=== PATIENT | male | born 1935 | race Caucasian/White ===

== ENCOUNTER 2016-05-10 14:22 | Inpatient (IN) | payer MEDICARE ==
[2016-05-10 15:22] VITALS: BMI 24.6
[2016-05-10] MEDS ORDERED: SODIUM CHLORIDE 0.9% 10 ML FLUSH FLUSH PRN (16:59)
[2016-05-10] MEDS ORDERED: Pharmacy Review for Metformin - IV Contrast Given SCH (17:00)
[2016-05-10] MEDS ORDERED: NS 1,000 ML IV ONE (17:00)
[2016-05-10] MEDS ORDERED: ONDANSETRON HCL 4 MG/2 ML VIAL IV ONE (17:01)
[2016-05-10 17:13] LABS: MPV 8.8 fL (7.4-10.4)
[2016-05-10 17:24] LABS: PARTIAL THROMB. TIME 23.8 SEC (22-35)
[2016-05-10 17:25] LABS: BLOOD UREA NITROGEN 37 MG/DL (9-20); CALCIUM 9.5 MG/DL (8.4-10.2); CALCULATED OSMOLALITY 270 MOs/Kg (270-290); CHLORIDE 94 mEq/L (98-107); GLUCOSE 112 MG/DL (70-99); SODIUM LEVEL 135 mEq/L (137-146); TOTAL PROTEIN 8.3 G/DL (6.3-8.2)
--- NOTE | 2016-05-10 17:32 | EDPRACDOC ---
- General Information Information Source: Patient, Family Mode Of Arrival: Car - History of Present Illness Onset: THUR Pain Location: Reports: RLQ, LLQ Pain Context: Reports: Spontaneous Pain Severity: Severe Pain Quality: Reports: Cramping, Sharp, Stabbing Pain Radiation: Reports: Chest Modifying Factors: improves with: Nothing Associated Signs & Symptoms: Reports: Nausea, Vomiting, Chills <Germaine Tang - Last Filed: 05/10/16 17:30> <Kenzie Villafuerte - Last Filed: 05/10/16 19:26> - General Information Chief Complaint: Abdominal Pain Stated Complaint: VOMITING/ NAUSEA Time Seen by Provider: 05/10/16 16:37 Home Medications: Home Medications Aspirin 325 mg PO DAILY 01/20/13 Diltiazem HCl [Cartia Xt] 240 mg PO DAILY 01/20/13 Docosahexanoic Acid/Epa [Fish Oil Softgel] 1 each PO DAILY 01/20/13 Multivitamin [One-A-Day Essential] 1 each PO DAILY 01/20/13 Allergies/Adverse Reactions: Allergies Allergy/AdvReac Type Severity Reaction Status Date / Time No Known Allergies Allergy Verified 05/10/16 15:22 - History of Present Illness HPI: PT PRESENTS TODAY WITH BILATERAL LOWER ABD PAIN, N/V, CHILLS AND CP X 4 DAYS. PT STATES HE IS UNABLE TO KEEP ANYTHING DOWN. STATES THAT ABD PAIN IS WORSENED AND NOW IS MOVING INTO HIS CHEST, CAUSING CP, WHICH IS ALSO WORSE WITH VOMITING. HAS VOMITED 3 TIMES TODAY. PT HAS PACEMAKER FOR A FIB, AND NO OTHER MED/SURG HISTORY. NO APPARENT DISTRESS AT THIS TIME. (Germaine Tang) Other History: NAUSEA AND ANOREXIA FOR SEVERAL DAYS. VOMITING SO DAYS. SOME SMALL AMOUNT OF STOOL OUTPUT. WITHOUT DIARRHEA. (Kenzie Villafuerte) ED Past Medical History - History Reviewed Yes Nurses notes reviewed and agree except as marked - Patient Medical History Cardiac History: Reports: Atrial Fibrillation, Hypertension, Pacemaker (2010) Psychological History: Denies: Depression Systemic History: Denies: Cancer - Family Medical History Reports: Hypertension (siblings), Diabetes (siblings), Cardiac Disorders ( siblings). Denies: Cancer - Social Medical History Smoking Status: Never smoker <Germaine Tang - Last Filed: 05/10/16 17:30> - Patient Medical History Surgical History: Reports: No Significant History - Social Medical History ETOH: None Substance Abuse: None Lives With: Family Lives In: Home <Kenzie Villafuerte N - Last Filed: 05/10/16 19:26> EDM Review of Systems - Review of Systems ROS Negative Except as Marked: Yes All systems reviewed and were negative except as marked Constitutional: Chills, Fatigue, Loss of Appetite Eyes: No Symptoms Reported Ears: No Symptoms Reported Throat: No Symptoms Reported Nose: No Symptoms Reported Respiratory: No Symptoms Reported Cardiovascular: Chest Pain Gastrointestinal: Nausea, Pain, Vomiting Genitourinary: No Symptoms Reported Neurological: No Symptoms Reported Musculoskeletal: No Symptoms Reported Integumentary: No Symptoms Reported <KittyGermaine mcintyre - Last Filed: 05/10/16 17:30> - Physical Exam Constitutional: Alert (Awake), No apparent distress Oriented to: Time, Person, Place - HEENT Head: Normal Eye Exam: Normal Neck: Normal, Denies Pain, Midline - Respiratory/Cardiovascular Respiratory: Normal - CTA Cardiovascular: Normal - GI Auscultation: Normal Palpation: Normal Tenderness: Non tender (PT DENIES PAIN AT THIS TIME) - Musculoskeletal Back: Normal Extremities: Normal - Integumentary Skin: Normal Lymphatics: Normal - Neurologic Cerebellar: Normal Mood Description: Normal Thought: Coherent Perception: Normal <KittyGermaine Mcintyre - Last Filed: 05/10/16 17:30> - Results 05/10/16 16:51 05/10/16 16:51 <Germaine Tang - Last Filed: 05/10/16 17:30> - Results 05/10/16 16:51 05/10/16 16:51 - Diagnostic Imaging Abdomen Image interpreted by: Radiologist <VillafuerteLexie butlerdy N - Last Filed: 05/10/16 19:26> - Results WBC 20.3 xk/uL (3.8-10.8) H 05/10/16 16:51 RBC 5.18 xM/uL (4.70-6.10) 05/10/16 16:51 Hgb 15.1 g/dL (14.0-18.0) 05/10/16 16:51 Hct 45.5 % (42-52) 05/10/16 16:51 MCV 88 fL (80-94) 05/10/16 16:51 MCH 29.1 pg (27-32) 05/10/16 16:51 MCHC 33.2 g/dl (33-36) 05/10/16 16:51 RDW 12.9 % (11.5-14.5) 05/10/16 16:51 Plt Count 240 xk/uL (130-400) 05/10/16 16:51 MPV 8.8 fL (7.4-10.4) 05/10/16 16:51 Neut % (Auto) Cancelled 05/10/16 16:51 Lymph % (Auto) Cancelled 05/10/16 16:51 [place] % (Auto) Cancelled 05/10/16 16:51 Eos % (Auto) Cancelled 05/10/16 16:51 Baso % (Auto) Cancelled 05/10/16 16:51 Absolute Neuts (auto) Cancelled 05/10/16 16:51 Absolute Lymphs (auto) Cancelled 05/10/16 16:51 Seg Neuts % (Manual) 77 % (45-76) H 05/10/16 16:51 Lymphocytes % (Manual) 22 % (17-44) 05/10/16 16:51 Monocytes % (Manual) 1 % (0-10) 05/10/16 16:51 Absolute Lymphocytes 4.47 xk/uL (0.65-4.75) 05/10/16 16:51 Platelet Estimate Norm (NORMAL) 05/10/16 16:51 RBC Morphology Norm 05/10/16 16:51 PT 10.6 SEC (9.2-11.2) 05/10/16 16:51 INR 1.0 05/10/16 16:51 APTT 23.8 SEC (22-35) 05/10/16 16:51 Sodium 135 mEq/L (137-146) L 05/10/16 16:51 Potassium 4.2 mEq/L (3.5-5.1) 05/10/16 16:51 Chloride 94 mEq/L (98-107) L 05/10/16 16:51 Carbon Dioxide 27 mMOL/L (22-33) 05/10/16 16:51 Anion Gap 18 mEq/L (8-16) H 05/10/16 16:51 BUN 37 MG/DL (9-20) H 05/10/16 16:51 Creatinine 1.00 MG/DL (0.66-1.25) 05/10/16 16:51 Estimated GFR (MDRD) > 60 mL/min (>=60) 05/10/16 16:51 Glucose 112 MG/DL (70-99) H 05/10/16 16:51 Calculated Osmolality 270 MOs/Kg (270-290) 05/10/16 16:51 Lactic Acid 1.5 mEq/L (0.7-2.1) 05/10/16 17:18 Calcium 9.5 MG/DL (8.4-10.2) 05/10/16 16:51 Total Bilirubin 1.0 MG/DL (0.2-1.3) 05/10/16 16:51 AST 58 IU/L (17-59) 05/10/16 16:51 ALT 33 IU/L (21-72) 05/10/16 16:51 Alkaline Phosphatase 96 IU/L (50-160) 05/10/16 16:51 Troponin I < 0.01 ng/mL (<.04) 05/10/16 16:51 Total Protein 8.3 G/DL (6.3-8.2) H 05/10/16 16:51 Albumin 4.4 G/DL (3.5-5.0) 05/10/16 16:51 Urine Color Germaine 05/10/16 16:42 Urine Clarity Sl cldy 05/10/16 16:42 Urine pH 6.0 (5.0-8.0) 05/10/16 16:42 Ur Specific [place] >/=1.035 (1.003-1.035) 05/10/16 16:42 Urine Protein 2+ (NEG/TRACE) H 05/10/16 16:42 Urine Glucose (UA) Neg (NEGATIVE) 05/10/16 16:42 Urine Ketones Neg (NEGATIVE) 05/10/16 16:42 Urine Occult Blood Neg (NEG/TRACE) 05/10/16 16:42 Urine Nitrite Neg (NEGATIVE) 05/10/16 16:42 Urine Bilirubin Neg (NEGATIVE) 05/10/16 16:42 Urine Urobilinogen <2.0 MG/DL (0-1) 05/10/16 16:42 Ur Leukocyte Esterase Neg (NEGATIVE) 05/10/16 16:42 Urine RBC 10-20 (0-2) H 05/10/16 16:42 Urine WBC 2-5 (0-2) H 05/10/16 16:42 Calcium Oxalate Crystal 1+ 05/10/16 16:42 Urine Mucus Large (NEG/OCC) 05/10/16 16:42 Lab Results 05/10/16 05/10/16 05/10/16 17:18 16:51 16:51 WBC 20.3 H RBC 5.18 Hgb 15.1 Hct 45.5 MCV 88 MCH 29.1 MCHC 33.2 RDW 12.9 Plt Count 240 MPV 8.8 Neut % (Auto) Cancelled Lymph % (Auto) Cancelled [place] % (Auto) Cancelled Eos % (Auto) Cancelled Baso % (Auto) Cancelled Absolute Neuts (auto) Cancelled Absolute Lymphs (auto) Cancelled Seg Neuts % (Manual) 77 H Lymphocytes % (Manual) 22 Monocytes % (Manual) 1 Absolute Lymphocytes 4.47 Platelet Estimate Norm RBC Morphology Norm PT 10.6 INR 1.0 APTT 23.8 Sodium Potassium Chloride Carbon Dioxide Anion Gap BUN Creatinine Estimated GFR (MDRD) Glucose Calculated Osmolality Lactic Acid 1.5 Calcium Total Bilirubin AST ALT Alkaline Phosphatase Troponin I Total Protein Albumin Urine Color Urine Clarity Urine pH Ur Specific [place] Urine Protein Urine Glucose (UA) Urine Ketones Urine Occult Blood Urine Nitrite Urine Bilirubin Urine Urobilinogen Ur Leukocyte Esterase Urine RBC Urine WBC Calcium Oxalate Crystal Urine Mucus 05/10/16 05/10/16 16:51 16:42 WBC RBC Hgb Hct MCV MCH MCHC RDW Plt Count MPV Neut % (Auto) Lymph % (Auto) [place] % (Auto) Eos % (Auto) Baso % (Auto) Absolute Neuts (auto) Absolute Lymphs (auto) Seg Neuts % (Manual) Lymphocytes % (Manual) Monocytes % (Manual) Absolute Lymphocytes Platelet Estimate RBC Morphology PT INR APTT Sodium 135 L Potassium 4.2 Chloride 94 L Carbon Dioxide 27 Anion Gap 18 H BUN 37 H Creatinine 1.00 Estimated GFR (MDRD) > 60 Glucose 112 H Calculated Osmolality 270 Lactic Acid Calcium 9.5 Total Bilirubin 1.0 AST 58 ALT 33 Alkaline Phosphatase 96 Troponin I < 0.01 Total Protein 8.3 H Albumin 4.4 Urine Color Germaine Urine Clarity Sl cldy Urine pH 6.0 Ur Specific [place] >/=1.035 Urine Protein 2+ H Urine Glucose (UA) Neg Urine Ketones Neg Urine Occult Blood Neg Urine Nitrite Neg Urine Bilirubin Neg Urine Urobilinogen <2.0 Ur Leukocyte Esterase Neg Urine RBC 10-20 H Urine WBC 2-5 H Calcium Oxalate Crystal 1+ Urine Mucus Large (Germaine Tang) (Kenzie Villafuerte) - Diagnostic Imaging Abdomen 05/10/16 19:13 Patient Name: CASE CERNA JR LOC: ED : 1935 AGE: 80 Order Date:05/10/16 Date of Service:12/17 Report # [id number] Ord Physician: Germaine Tang Exam # [id number] Emergency Physician: Kenzie Villafuerte MD Exam(s): [id number] CT/CT ABD-PELV W/IV CM CLINICAL DATA: Lower abdominal pain. Leukocytosis. EXAM: CT ABDOMEN AND PELVIS WITH CONTRAST TECHNIQUE: Multidetector CT imaging of the abdomen and pelvis was performed using the standard protocol following bolus administration of intravenous contrast. CONTRAST: 100 cc Isovue 370 intravenously. COMPARISON: None. FINDINGS: Lower chest: Partially visualized cardiac pacemaker leads are seen in the right atrium and right ventricle. There is coronary artery disease. There is a small hiatal hernia. Hepatobiliary: No masses or other significant abnormality. Pancreas: No mass, inflammatory changes, or other significant abnormality. Spleen: Within normal limits in size and appearance. Adrenals/Urinary Tract: No masses identified. No evidence of hydronephrosis. There is a 3 mm nonobstructing right lower pole renal calculus. There is a 7 mm, left lower pole probable renal cyst. Stomach/Bowel: The stomach is distended. Moderate in degree distention continues into the duodenum and proximal jejunum, with maximum transverse diameter of 3 cm. There is a transition to normal caliber small bowels in the mid abdomen at enterotomy line, likely from prior small bowel resection, axial images 60-64. The proximal most segment of decompressed bowel demonstrates a long segment of smooth wall thickening involving across approximately 13 cm of bowel. The colon is normal in caliber. Scattered colonic diverticula, particularly of the sigmoid colon are seen without evidence of diverticulitis. Vascular/Lymphatic: No pathologically enlarged lymph nodes. No evidence of abdominal aortic aneurysm. Tortuosity and atherosclerotic disease of the abdominal aorta are noted, with calcified and noncalcified plaque. Reproductive: The prostate gland is prominent measuring 4.5 x 3.9 cm. Other: None. Musculoskeletal: No suspicious bone lesions identified. S shape lumbosacral spine scoliosis with multilevel osteoarthritic changes are seen. IMPRESSION: Partial or incomplete proximal small bowel obstruction, with a transitional point at prior enterotomy line likely from prior small bowel resection, with long segment of smooth bowel wall thickening of approximately 13 cm immediately downstream to the transitional point. Scattered colonic diverticulosis, particularly affecting the sigmoid colon without evidence of diverticulitis. Tiny nonobstructing right renal calculus. 7 mm smoothly marginated too small to be characterized left renal mass, likely representing a cyst. Mild enlargement of the prostate gland. Atherosclerotic disease of the aorta. Small hiatal hernia. Electronically Signed By: Tammie Valentine M.D. On: 05/10/2016 18:26 Electronically Signed By: Tammie Mauricio MD Electronically Signed Date/Time: 829 Dictate Date/Time: 05/10/16 1808 Technologist: Bre Bolaños Transcribed By: Aristeo Transcribed Date/Time: 05/10/16 1826 (Kenzie Villafuerte) <Germaine Tang - Last Filed: 05/10/16 17:30> - Departure Disposition: Admit IP To This Hospital Education/Counseling Given To: Patient, Family Member Education/Counseling Given Regarding: Diagnosis, Treatment, Prognosis Decision to Admit Time: 19:26 Decision to admit date: 05/10/16 Decision to admit: from ED - Physician Consulted Hospitalist Time Called: 19:14 Provider Called: Rikki Saavedra Time Cardroom Supervisor Returned Call: 19:26 <Kenzie Villafuerte - Last Filed: 05/10/16 19:26> - Departure Final Diagnosis: Partial small bowel obstruction, Dehydration Referrals: Beni Dahl MD [Primary Care Provider] - As Needed
[2016-05-10 17:34] LABS: SEG NEUTROPHIL 77 % (45-76)
[2016-05-10 17:40] LABS: CA OXALATE 1+; LEUKOCYTES/URINE NEG (NEGATIVE); NITRITE/URINE NEG (NEGATIVE); URINE OCCULT BLOOD NEG (NEG/TRACE)
--- NOTE | 2016-05-10 17:47 | DIRPT ---
CLINICAL DATA: Chest pain. EXAM: PORTABLE CHEST 1 VIEW COMPARISON: Single view of the chest 07/17/2010. FINDINGS: Since the prior study, dual lead pacing device has been placed. Leads project over the right atrium and right ventricle. Heart size is upper normal. Lungs are clear. No pneumothorax or pleural effusion. IMPRESSION: No acute disease. Electronically Signed By: Julio Cesar Vance M.D. On: 05/10/2016 17:44
--- NOTE | 2016-05-10 18:29 | DIRPT ---
CLINICAL DATA: Lower abdominal pain. Leukocytosis. EXAM: CT ABDOMEN AND PELVIS WITH CONTRAST TECHNIQUE: Multidetector CT imaging of the abdomen and pelvis was performed using the standard protocol following bolus administration of intravenous contrast. CONTRAST: 100 cc Isovue 370 intravenously. COMPARISON: None. FINDINGS: Lower chest: Partially visualized cardiac pacemaker leads are seen in the right atrium and right ventricle. There is coronary artery disease. There is a small hiatal hernia. Hepatobiliary: No masses or other significant abnormality. Pancreas: No mass, inflammatory changes, or other significant abnormality. Spleen: Within normal limits in size and appearance. Adrenals/Urinary Tract: No masses identified. No evidence of hydronephrosis. There is a 3 mm nonobstructing right lower pole renal calculus. There is a 7 mm, left lower pole probable renal cyst. Stomach/Bowel: The stomach is distended. Moderate in degree distention continues into the duodenum and proximal jejunum, with maximum transverse diameter of 3 cm. There is a transition to normal caliber small bowels in the mid abdomen at enterotomy line, likely from prior small bowel resection, axial images 60-64. The proximal most segment of decompressed bowel demonstrates a long segment of smooth wall thickening involving across approximately 13 cm of bowel. The colon is normal in caliber. Scattered colonic diverticula, particularly of the sigmoid colon are seen without evidence of diverticulitis. Vascular/Lymphatic: No pathologically enlarged lymph nodes. No evidence of abdominal aortic aneurysm. Tortuosity and atherosclerotic disease of the abdominal aorta are noted, with calcified and noncalcified plaque. Reproductive: The prostate gland is prominent measuring 4.5 x 3.9 cm. Other: None. Musculoskeletal: No suspicious bone lesions identified. S shape lumbosacral spine scoliosis with multilevel osteoarthritic changes are seen. IMPRESSION: Partial or incomplete proximal small bowel obstruction, with a transitional point at prior enterotomy line likely from prior small bowel resection, with long segment of smooth bowel wall thickening of approximately 13 cm immediately downstream to the transitional point. Scattered colonic diverticulosis, particularly affecting the sigmoid colon without evidence of diverticulitis. Tiny nonobstructing right renal calculus. 7 mm smoothly marginated too small to be characterized left renal mass, likely representing a cyst. Mild enlargement of the prostate gland. Atherosclerotic disease of the aorta. Small hiatal hernia. Electronically Signed By: Tammie Valentine M.D. On: 05/10/2016 18:26
[2016-05-10] MEDS ORDERED: ACETAMINOPHEN 325 MG SUPP PR PRN (19:27)
[2016-05-10] MEDS ORDERED: BISACODYL 10 MG SUPP PR PRN (19:27)
[2016-05-10] MEDS ORDERED: PROMETHAZINE 25 MG/ML VIAL IV PRN (19:27)
[2016-05-10] MEDS ORDERED: TUSSIONEX 5 ML ORAL SYRINGE PO PRN (19:27)
[2016-05-10] MEDS ORDERED: ACETAMINOPHEN 325 MG/TAB TABLET PO PRN (19:27)
[2016-05-10] MEDS ORDERED: ONDANSETRON HCL 4 MG/2 ML VIAL IV PRN (19:27)
[2016-05-10] MEDS ORDERED: SENNA CONCENTRATE TAB PO PRN (19:27)
[2016-05-10] MEDS ORDERED: BENZONATATE 100 MG PERLES PO PRN (19:27)
[2016-05-10] MEDS ORDERED: Albuterol/Ipratropium Neb 3 ML NEB NEB PRN (19:31)
[2016-05-10] MEDS ORDERED: ENOXAPARIN 40 MG/0.4 ML PFS SQ SCH (20:00)
[2016-05-10 21:01] LABS: hTSH 1.63 uIU/mL (0.5-4.67)
[2016-05-10] MEDS: NS/KCl 20 mEq 1,000 ML IV SCH (21:09)
[2016-05-11] MEDS: PIPERACILLIN AND TAZOBACTAM 4.5 GM in D5W 100 ML IV SCH ×3 (01:36→17:47)
[2016-05-11 01:57] LABS: AUTOMATED BASOPHIL 0.8 % (0-2); AUTOMATED EOSINOPHIL 0.2 % (0-5); AUTOMATED LYMPH 13.4 % (17-44); AUTOMATED MONOCYTE 9.5 % (3-10); AUTOMATED NEUTROPHIL 76.1 % (45-76); MPV 9.1 fL (7.4-10.4)
[2016-05-11 02:11] LABS: BLOOD UREA NITROGEN 34 MG/DL (9-20); CALCULATED OSMOLALITY 272 MOs/Kg (270-290); CHLORIDE 99 mEq/L (98-107); GLUCOSE 101 MG/DL (70-99); SODIUM LEVEL 137 mEq/L (137-146)
[2016-05-11] MEDS: Levofloxacin 750 mg/150 ml D5W 750 MG/150 ML RTU IV SCH (03:13)
[2016-05-11] MEDS: NS/KCl 20 mEq 1,000 ML IV SCH ×3 (05:13→19:25)
[2016-05-11] MEDS ORDERED: MULTIVITAMIN PO SCH (09:00)
[2016-05-11] MEDS ORDERED: GLYCOPYRROLATE 1 MG VIAL IM ONE (10:00)
[2016-05-11] MEDS ORDERED: FENTANYL 250 MCG/5 ML VIAL IV ONE (10:00)
[2016-05-11] MEDS ORDERED: NEOSTIGMINE 1 MG/1 ML (1:1000) INJ 10 ML MDV IM ONE (10:00)
[2016-05-11] MEDS ORDERED: LIDOCAINE 100 MG PFS IV ONE (10:00)
[2016-05-11] MEDS ORDERED: ONDANSETRON HCL 4 MG/2 ML VIAL IV ONE (10:00)
[2016-05-11] MEDS ORDERED: HYDROmorphone 2 MG/ML VIAL IM ONE (10:00)
[2016-05-11] MEDS ORDERED: DEXAMETHASONE 4 MG/ML VIAL IV ONE (10:00)
[2016-05-11] MEDS ORDERED: ROCURONIUM 50 MG/5 ML VIAL IV ONE (10:00)
[2016-05-11] MEDS ORDERED: PROPOFOL 200 MG/20 ML VIAL IV ONE (10:00)
[2016-05-11] MEDS ORDERED: Vaccine Screening Complete SCH (11:00)
--- NOTE | 2016-05-11 11:18 | PCM.SURGCO ---
Consultation Date: 05/11/16 Requesting Physician: Rikki Saavedra Shear Tender: Dg Yarbrough Consult Reason: Bowel Obstruction - History of Present Illness The patient is a pleasant 80-year-old male who is not had any prior abdominal surgeries and had developed nausea vomiting abdominal pain last . He has never had anything like this before. He has not had any bleeding any diarrhea or weight loss. He had a CT scan that showed obstruction. They had thought this could be due to adhesions but he has not had any prior abdominal surgeries. He has significant thickening of the distal small bowel with a transition zone. He had a colonoscopy in the last few years that was normal. There is no family history of any inflammatory bowel disease. There is no family history of any lymphoma. He denies any fever or chills. There is no night sweats. The patient does have AFib and sick sinus syndrome and has a pacemaker is on diltiazem and aspirin chronically and did not need anticoagulation per his digital producer. Chief Complaint: Abdominal pain. - Past Medical and Surgical History Cardiac History: Reports: Atrial Fibrillation, Pacemaker (Sick sinus syndrome for which he received pacemaker by Dr. Toro), Other (Pacemaker insertion for sick sinus syndrome) Respiratory History: Reports: No Significant History. Denies: Asthma, COPD GI/ History: Reports: No Significant History. Denies: Renal Disease, Gastroesophageal Reflux Systemic History: Reports: No Significant History. Denies: Cancer, Diabetes Musculoskeletal History: Reports: No Significant History. Denies: Gout, Rheumatoid Arthritis Psychological History: Reports: No Significant History. Denies: Alcoholism ( None in 40 years), Substance Use Disorder Neurological History: Reports: No Significant History. Denies: Cerebrovascular Accident, Seizures Past Surgical History: Reports: No Significant History, Other (Pacemaker placement. No abdominal surgeries.) Allergies No Known Allergies Allergy (Verified 05/10/16 15:22) Home Medications Aspirin 325 mg PO DAILY 01/20/13 Diltiazem HCl [Cartia Xt] 240 mg PO DAILY 01/20/13 Docosahexanoic Acid/Epa [Fish Oil Softgel] 1 each PO DAILY 01/20/13 Multivitamin [One-A-Day Essential] 1 each PO DAILY 01/20/13 - Social History Travel Outside of [place] in the Last 3 Months?: No Lives: with Spouse Smoking Status: Never smoker Social History: Denies: Alcohol Use (None in 40 years), Substance Use Disorder - Family History Reports: No Significant History, Cancer (Three siblings have of tobacco associated lung cancer and COPD), Other (Father@ 42 of gunshot wound mother @ 52 with a bowel obstruction) - Review of Systems Constitutional: No Symptoms Reported. negative: Chills, Fever, Diaphoresis, Fatigue, Weight loss Eyes: No Symptoms Reported. negative: Blurred Vision, Double Vision Ears: No Symptoms Reported. negative: Drainage, Hearing Loss Nose: No Symptoms Reported. negative: Abrasion, Bleeding Mouth: No Symptoms Reported. negative: Pain, Dry Mouth Throat/Neck: No Symptoms Reported. negative: Pain, Swelling Respiratory: No Symptoms Reported. negative: Barky Cough, Wheezing Cardiovascular: No Symptoms Reported. negative: Chest Pain, Palpitations Gastrointestinal: Nausea, Vomiting, Abdominal Pain. negative: Diarrhea, Melena , Hematochezia Genitourinary: No Symptoms Reported. negative: Bleeding, Dysuria Neurological: No Symptoms Reported. negative: Dizziness, Gait Difficulty Musculoskeletal:: No Symptoms Reported. negative: Osteoarthritis, Joint Pain, Joint Swelling Integumentary: No Symptoms Reported. negative: Bruising, Itching Allergic/Immunologic: No Symptoms Reported. negative: Hives, Itching Hematologic: No Symptoms Reported. negative: Lymphadenopathy, Anemia Endocrine: No Symptoms Reported. negative: Weight Gain, Weight Loss Psychiatric: No Symptoms Reported. negative: Anxiety, Depression - Physical Exam Vital Signs: Initial Vitals Temperature 97.7 F 05/10/16 15:22 Pulse Rate 60 05/10/16 15:22 Respiratory Rate 18 05/10/16 15:22 Blood Pressure 147/82 05/10/16 15:22 Pulse Oxygen Saturation 95 05/10/16 15:22 Constitutional: No apparent distress, Alert Oriented to: Time, Person, Place - HEENT Head: Normal. negative: Laceration, Tender Eye: Normal. negative: Edema, Scleral Icterus Oropharynx: Normal. negative: Membranes Dry, Red ENT EAC: Normal. negative: Blood TMJ: Normal. negative: Crepitance, Tender Nose: No Symptoms Reported. negative: Abrasion, Bleeding Respiratory: Normal - CTA. negative: Accessory Muscle Use, Diminished Cardiovascular: Normal. negative: Bradycardia, Tachycardia, Irregular, Diastolic murmur, Systolic murmur - GI Auscultation: Decreased. negative: Bruit Palpation: Other (Mildly distended.). negative: Enlarged liver, Enlarged spleen Tenderness: Mild (No rebound or guarding.) Merrill's Sign: Negative Rectal Exam: Deferred - Exam Deferred: Yes - Musculoskeletal Back: Normal. negative: Abrasion, Ecchymosis Extremities: Normal. negative: Calf Tenderness, Clubbing, Cyanosis, Edema Spine: non-tender, full range of motion, normal alignment - Integumentary Skin: Normal. negative: Clammy, Diaphoretic Lymphatics: Normal. negative: Adenopathy, Tender - Neurologic Memory Impaired: Normal Motor Function: Normal Cranial Nerve: Normal Cerebellar: Normal Mood Description: Normal Thought: Coherent Perception: Normal - Lab Results 05/11/16 01:35 05/11/16 01:35 - Assessment/Plan (1) Small bowel obstruction K56.69 - OTHER INTESTINAL OBSTRUCTION Acute Comment: The patient has significant thickening of the distal small bowel with obstruction that is high-grade. Because of this I think the patient needs laparoscopy and possible bowel resection and/or possible ostomy. He has not had any prior surgery so I do not believe this is from adhesions. I have explained this to him in detail including the risk of infection, bleeding and anesthesia as well as the unforeseen complications. He is in agreement. (2) Paroxysmal atrial fibrillation I48.0 - PAROXYSMAL ATRIAL FIBRILLATION Chronic Comment: Followed by Medicine and Cardiology. (3) Leukocytosis D72.829 - ELEVATED WHITE BLOOD CELL COUNT, UNSPECIFIED Acute bandemia D72.825 - Bandemia Comment: Concerning for infection, on antibiotics. (4) Abdominal pain R10.9 - UNSPECIFIED ABDOMINAL PAIN Acute Comment: Acute onset of pain unlikely to be a chronic condition.
[2016-05-11] MEDS ORDERED: BUPIVACAINE 0.25%-EPINEPHRINE 1:200,000 30 ML ONE (11:58)
[2016-05-11] MEDS ORDERED: ONDANSETRON HCL 4 MG/2 ML VIAL IV PRN (12:09)
[2016-05-11] MEDS ORDERED: HYDROmorphone 1 MG INJECTION IV PRN ×2 (12:09)
[2016-05-11] MEDS ORDERED: LABETALOL 20 MG/4 ML SYRINGE IV PRN (12:09)
[2016-05-11] MEDS ORDERED: hydrALAZINE 20 MG/ML VIAL IV PRN (12:09)
[2016-05-11] MEDS ORDERED: MEPERIDINE 25 MG/ML TUBEX IV PRN (12:09)
[2016-05-11] MEDS ORDERED: FENTANYL 100 MCG/2 ML VIAL IV PRN ×2 (12:09)
[2016-05-11] MEDS ORDERED: PROMETHAZINE 25 MG/ML VIAL IV PRN (12:09)
[2016-05-11] MEDS ORDERED: ONDANSETRON HCL 4 MG ODT TAB PO PRN (12:09)
--- NOTE | 2016-05-11 12:10 | SC.ANESPOS ---
Post-Anesthesia Note LOC: [facility] Calling Post-Anesthesia Assessment: Awake, Returned to Baseline, Hemodynamically Stable , Pain Control Adequate Phase I & II Recovery Complete: Yes Apparent Anesthesia Complication: No : N - Vital Signs Blood Pressure: 128/62 Pulse: 72 Resp Rate: 20 O2 Sat: 95 Temp: 98.6 F
--- NOTE | 2016-05-11 12:10 | HIM.ANES ---
Anesthesia Evaluation & Plan - Focused Review of Systems Cardiac History: Yes: Hx Hypertension, Hx Pacemaker (Sick sinus syndrome for which he received pacemaker by Dr. Toro) HEENT: Yes: Cataracts (surgery) No: Other HEENT Problems Gastrointestinal: No: Hx Gastrointestinal Disorders Neurological/Musculoskeletal: No: Hx Neurological Disorders Psychological: No Hx Depression, No Hx Mental/Emotional Disorders Blood/Autoimmune: No: Hx AIDS, Hx Hepatitis (type) Smoking Status: Never smoker Past Social History: Denies: Alcohol Use (None in 40 years), Substance Use Disorder Alcohol use: None Hx Echocardiogram (date): (3 YEARS AGO JAYLYN) Hx Chest Xray (date): Yes (05/10/16) - Focused Physical Exam NPO since: MIDNIGHT Mallampati: Class III Thyromental Distance: Greater than 3 Neck: Full Range of Motion Dental: Normal - no significant findings Cardiovascular/Chest: Normal Respiratory: Lungs clear Any problems with anesthesia, including nausea and vomiting?: No Any relatives with a history of Malignant Hyperthermia?: No Beta Tay given (if appropriate): Yes Other: Problem List Problem Status Onset Dehydration Acute Leukocytosis Acute Partial small bowel obstruction Acute Sick sinus syndrome Acute Small bowel obstruction Acute Elevated serum globulin level Chronic Paroxysmal atrial fibrillation Chronic PT/PTT/INR/ PT 10.6 SEC (9.2-11.2) 05/10/16 16:51 INR 1.0 05/10/16 16:51 APTT 23.8 SEC (22-35) 05/10/16 16:51 CBC/BMP/Other 05/11/16 01:35 05/11/16 01:35 Allergies Allergy/AdvReac Type Severity Reaction Status Date / Time No Known Allergies Allergy Verified 05/10/16 15:22 Home Medications Medication Instructions Recorded Last Taken Type Aspirin 325 mg PO DAILY 01/20/13 05/10/16 History Diltiazem HCl [Cartia Xt] 240 mg PO DAILY 01/20/13 05/10/16 History Docosahexanoic Acid/Epa [Fish Oil 1 each PO DAILY 01/20/13 05/10/16 History Softgel] Multivitamin [One-A-Day Essential] 1 each PO DAILY 01/20/13 05/10/16 History Height and Weight Patient's weight 166 lb 8 oz Weight (Calculated Kilograms) 75.523 Vital Signs Temperature 98.6 F 05/11/16 12:10 Pulse Rate 72 05/11/16 12:10 Respiratory Rate 20 05/11/16 12:10 Blood Pressure 128/62 05/11/16 12:10 Pulse Oxygen Saturation 95 05/11/16 12:10 - Anesthetic Plan Anesthesia Type: General ASA Class: 3 -: I have examined this patient and reviewed the medical record. The patient has been assessed prior to anesthesia. Risks and benefits of anesthesia and anesthetic technique options have been discussed and all questions answered. The patient accepts the risk and desires me to proceed with the planned anesthetic.
--- NOTE | 2016-05-11 13:21 | HIMOPRPT ---
DATE OF PROCEDURE: 05/11/16 PREOPERATIVE DIAGNOSES: Small-bowel obstruction with mass effect of the terminal ilium, no prior surgery. 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 PROCEDURES: Diagnostic laparoscopy with reduction of internal hernia and lysis of adhesions. SURGEON: Dg Yarbrough MD ANESTHESIA: General. COMPLICATIONS: None. ESTIMATED BLOOD LOSS: Minimal. ANTIBIOTICS: Preoperative antibiotics given. INDICATIONS: The patient is a very pleasant 80-year-old male who had never had any surgery in the past and had a bowel obstruction on CT scan with thickening of the terminal ilium and mass effect. We had recommended surgery and explained the risks and benefits including the risk of infection, bleeding and anesthesia. We also explained the possibility of bowel resection and ostomy. He understood and agreed was brought for the above-mentioned procedure. OPERATIVE NOTE: Patient was brought to the operating room and placed on the operating table in the supine position. After adequate amount of general anesthesia patient was prepped and draped in sterile manner. When given the okay by anesthesia after appropriate time-out an Optiview trocar was placed at umbilicus usual manner without any difficulties. The abdomen was insufflated to 15 mm mercury pressure and 2 other trocars were placed in the left upper quadrant. At that point we inspected the abdomen there was a little bit hemorrhagic fluid. We could see a portion of the terminal ilium that was hemorrhagic but viable. There was a band of omentum that was constricting the bowel causing the internal hernia. We lysed this with Harmonic scalpel dissection freed up the bowel. The bowel appeared to be viable and we thought it had a greater than 95% chance of healing without problems. Because of this we irrigated the abdomen and suctioned dry the abdomen. The small piece of omentum had been removed with Harmonic scalpel dissection. The bowel had been run and no other problems were noted. The trocars were then removed and hemostasis assured from the trocar sites. The abdomen was desufflated and all wounds were irrigated and brought together with 4 0 Monocryls. Dermabond tissue adhesive was applied and allowed to dry. The patient was woken and taken recover room in excellent condition with correct sponge counts needle counts.
[2016-05-11] MEDS: VITAMINS, MULTIPLE CAP PO SCH (15:27)
[2016-05-11] MEDS: Acetaminophen, Intravenous 1,000 MG/100 ML IVBOT IV SCH ×2 (15:29→22:30)
--- NOTE | 2016-05-11 16:15 | GENMEDPROG ---
Subjective Note: Feels okay. Mild abdominal pain. For surgery today. Notes Reviewed: Yes Events from last night noted and discussed with Clinical Staff Current Medication List: Reviewed Currently: Reports: Nausea and Vomiting, Abdominal Pain. Denies: Cough, Wheezing, AGARWAL, SOB, Chest Pain DVT Prophylaxis: Yes - Physical Examination Vital Signs and I&O: Last Vital Signs Temp 98.6 F 05/11/16 15:25 Pulse 72 05/11/16 15:25 Resp 20 05/11/16 15:25 BP 128/62 05/11/16 15:25 Pulse Ox 95 05/11/16 15:25 Oxygen Pulse Oxygen Saturation 95 O2 Device Room Air Oxygen Flow Rate 6 Fraction of Inspired Oxygen ( FIO2) Intake & Output 05/08/16 05/09/16 05/10/16 05/11/16 23:59 23:59 23:59 23:59 Intake Total 1000 1933 Output Total 175 Balance 1000 1758 Patient's weight 75.523 kg General: Alert, Oriented x3, Cooperative, No acute distress, Well appearing, Well nourished HEENT: Normal, PERRLA, EOMI, Anicteric Sclera Neck: Non-tender, Full range of motion, Normal Trachea alignment, Normal inspection. negative: JVD Lymphatics: Normal (No cervical lymphadenopathy. No supraclavicular lymphadenopathy.). negative: Adenopathy Respiratory: Normal - CTA (Clear to auscultation bilaterally. No wheezing, rales , rhonchi. Chest wall movements are symmetric. No use of accessory muscles to breathe.) Cardiovascular: Regular rate and rhythm, No Gallops,Rubs/Murmurs GI: No hepatospenomegaly, No masses, Tenderness. negative: Normal bowel sounds , Soft Extremities/Musculoskeletal: Normal pulses. negative: Tenderness, Swelling, Edema Skin: Warm,Dry and Intact, No rashes, No breakdown, No significant lesion Neurological: Normal Steady Gait, Normal speech, Strength at 5/5 X4 ext, Normal tone, Cranial nerves 3-12 NL, Reflexes 2+ Psych/Mental Status: Appropriate, Normal Affect, Cooperative Lab/DI/Studies Reviewed: Laboratory Results - last 24 hr 05/10/16 05/10/16 05/10/16 16:42 16:51 16:51 WBC 20.3 H RBC 5.18 Hgb 15.1 Hct 45.5 MCV 88 MCH 29.1 MCHC 33.2 RDW 12.9 Plt Count 240 MPV 8.8 Neut % (Auto) Cancelled Lymph % (Auto) Cancelled Walton % (Auto) Cancelled Eos % (Auto) Cancelled Baso % (Auto) Cancelled Absolute Neuts (auto) Cancelled Absolute Lymphs (auto) Cancelled Seg Neuts % (Manual) 77 H Lymphocytes % (Manual) 22 Monocytes % (Manual) 1 Absolute Lymphocytes 4.47 Platelet Estimate Norm RBC Morphology Norm ESR PT INR APTT Sodium 135 L Potassium 4.2 Chloride 94 L Carbon Dioxide 27 Anion Gap 18 H BUN 37 H Creatinine 1.00 Estimated GFR (MDRD) > 60 Glucose 112 H Calculated Osmolality 270 Lactic Acid Calcium 9.5 Total Bilirubin 1.0 AST 58 ALT 33 Alkaline Phosphatase 96 Troponin I < 0.01 C-Reactive Prot, Quant Total Protein 8.3 H Albumin 4.4 TSH Urine Color Germaine Urine Clarity Sl cldy Urine pH 6.0 Ur Specific Sawyer >/=1.035 Urine Protein 2+ H Urine Glucose (UA) Neg Urine Ketones Neg Urine Occult Blood Neg Urine Nitrite Neg Urine Bilirubin Neg Urine Urobilinogen <2.0 Ur Leukocyte Esterase Neg Urine RBC 10-20 H Urine WBC 2-5 H Calcium Oxalate Crystal 1+ Urine Mucus Large 05/10/16 05/10/16 05/10/16 16:51 17:18 20:10 WBC RBC Hgb Hct MCV MCH MCHC RDW Plt Count MPV Neut % (Auto) Lymph % (Auto) Walton % (Auto) Eos % (Auto) Baso % (Auto) Absolute Neuts (auto) Absolute Lymphs (auto) Seg Neuts % (Manual) Lymphocytes % (Manual) Monocytes % (Manual) Absolute Lymphocytes Platelet Estimate RBC Morphology ESR PT 10.6 INR 1.0 APTT 23.8 Sodium Potassium Chloride Carbon Dioxide Anion Gap BUN Creatinine Estimated GFR (MDRD) Glucose Calculated Osmolality Lactic Acid 1.5 Calcium Total Bilirubin AST ALT Alkaline Phosphatase Troponin I < 0.01 C-Reactive Prot, Quant Total Protein Albumin TSH 1.63 Urine Color Urine Clarity Urine pH Ur Specific Sawyer Urine Protein Urine Glucose (UA) Urine Ketones Urine Occult Blood Urine Nitrite Urine Bilirubin Urine Urobilinogen Ur Leukocyte Esterase Urine RBC Urine WBC Calcium Oxalate Crystal Urine Mucus 05/10/16 05/11/16 05/11/16 22:55 01:35 01:35 WBC 17.8 H RBC 4.79 Hgb 13.8 L Hct 42.0 MCV 88 MCH 28.8 MCHC 32.8 L RDW 12.9 Plt Count 215 MPV 9.1 Neut % (Auto) 76.1 H Lymph % (Auto) 13.4 L Walton % (Auto) 9.5 Eos % (Auto) 0.2 Baso % (Auto) 0.8 Absolute Neuts (auto) 13.53 H Absolute Lymphs (auto) 2.31 Seg Neuts % (Manual) Lymphocytes % (Manual) Monocytes % (Manual) Absolute Lymphocytes Platelet Estimate RBC Morphology ESR PT INR APTT Sodium 137 Potassium 4.5 Chloride 99 Carbon Dioxide 27 Anion Gap 16 BUN 34 H Creatinine 0.90 Estimated GFR (MDRD) > 60 Glucose 101 H Calculated Osmolality 272 Lactic Acid Calcium 9.0 Total Bilirubin AST ALT Alkaline Phosphatase Troponin I < 0.01 C-Reactive Prot, Quant Total Protein Albumin TSH Urine Color Urine Clarity Urine pH Ur Specific Sawyer Urine Protein Urine Glucose (UA) Urine Ketones Urine Occult Blood Urine Nitrite Urine Bilirubin Urine Urobilinogen Ur Leukocyte Esterase Urine RBC Urine WBC Calcium Oxalate Crystal Urine Mucus 05/11/16 05/11/16 01:35 01:35 WBC RBC Hgb Hct MCV MCH MCHC RDW Plt Count MPV Neut % (Auto) Lymph % (Auto) Walton % (Auto) Eos % (Auto) Baso % (Auto) Absolute Neuts (auto) Absolute Lymphs (auto) Seg Neuts % (Manual) Lymphocytes % (Manual) Monocytes % (Manual) Absolute Lymphocytes Platelet Estimate RBC Morphology ESR 18 H PT INR APTT Sodium Potassium Chloride Carbon Dioxide Anion Gap BUN Creatinine Estimated GFR (MDRD) Glucose Calculated Osmolality Lactic Acid Calcium Total Bilirubin AST ALT Alkaline Phosphatase Troponin I C-Reactive Prot, Quant 41.9 H Total Protein Albumin TSH Urine Color Urine Clarity Urine pH Ur Specific Sawyer Urine Protein Urine Glucose (UA) Urine Ketones Urine Occult Blood Urine Nitrite Urine Bilirubin Urine Urobilinogen Ur Leukocyte Esterase Urine RBC Urine WBC Calcium Oxalate Crystal Urine Mucus - Assessment (1) Partial small bowel obstruction Acute K56.69 - OTHER INTESTINAL OBSTRUCTION Comment/Plan: For exploratory laparoscopy today. Etiology unclear at this time. P.r.n. analgesics and supportive care. (2) Dehydration Acute E86.0 - DEHYDRATION Comment/Plan: Continue IV fluids (3) Sick sinus syndrome Acute I49.5 - SICK SINUS SYNDROME Comment/Plan: For which he received a pacemaker from Dr. Toro (4) Elevated serum globulin level Chronic R77.1 - ABNORMALITY OF GLOBULIN Comment/Plan: Monitor (5) Paroxysmal atrial fibrillation Chronic I48.0 - PAROXYSMAL ATRIAL FIBRILLATION Comment/Plan: Appears to be quiescent at present Case Care Discussed with: Patient, Family
[2016-05-12] MEDS: PIPERACILLIN AND TAZOBACTAM 4.5 GM in D5W 100 ML IV SCH (02:02)
[2016-05-12] MEDS: ENOXAPARIN 40 MG/0.4 ML PFS SQ SCH (02:02)
[2016-05-12] MEDS: Levofloxacin 750 mg/150 ml D5W 750 MG/150 ML RTU IV SCH (03:03)
[2016-05-12] MEDS: NS/KCl 20 mEq 1,000 ML IV SCH ×6 (04:43→22:03)
[2016-05-12] MEDS: Acetaminophen, Intravenous 1,000 MG/100 ML IVBOT IV SCH (05:30)
[2016-05-12 07:20] LABS: AUTOMATED BASOPHIL 0.1 % (0-2); AUTOMATED EOSINOPHIL 0.1 % (0-5); AUTOMATED LYMPH 20.4 % (17-44); AUTOMATED MONOCYTE 14.4 % (3-10); MPV 8.2 fL (7.4-10.4)
[2016-05-12 07:37] LABS: BLOOD UREA NITROGEN 20 MG/DL (9-20); CALCIUM 8.8 MG/DL (8.4-10.2); CALCULATED OSMOLALITY 268 MOs/Kg (270-290); CHLORIDE 105 mEq/L (98-107); GLUCOSE 82 MG/DL (70-99); SODIUM LEVEL 138 mEq/L (137-146)
--- NOTE | 2016-05-12 08:18 | PCM.SURGRO ---
- Subjective Patient: Reports: No new complaints, Feels better. Denies: Still having pain - Objective / Physical Exam Vital Signs: Temperature: 98.6 F (05/12/16 05:18) HR: 74 (05/12/16 05:18)RR: 18 (05/12/16 05: 18) BP: 113/66 (05/12/16 05:18)Pulse Ox: 94 (05/12/16 05:18) General: Alert, Oriented x3, Cooperative HEENT: Normal, PERRLA, EOMI Respiratory: Normal - CTA Cardiovascular: Regular rate Gastrointestinal: Soft, Bowel Sounds. negative: Distended, Tender Extremities: negative: Tenderness, Swelling, Edema, Clubbing, Cyanosis Psych/Mental Status: Appropriate, Cooperative Neurological: Strength at 5/5 X4 ext, Cranial nerves 3-12 NL Surgical wound: Clean/Dry, Intact - Assessment and Plan (1) Small bowel obstruction Acute K56.69 - OTHER INTESTINAL OBSTRUCTION Comment/Plan: S/P reduction of internal hernia doing well. Routine care. ABX stopped. Will clamp NG. (2) Paroxysmal atrial fibrillation Chronic I48.0 - PAROXYSMAL ATRIAL FIBRILLATION Present on Admission: Yes (3) Leukocytosis Acute D72.829 - ELEVATED WHITE BLOOD CELL COUNT, UNSPECIFIED Present on Admission: Yes bandemia D72.825 - Bandemia (4) Abdominal pain Acute R10.9 - UNSPECIFIED ABDOMINAL PAIN
[2016-05-12] MEDS: VITAMINS, MULTIPLE CAP PO SCH (12:04)
--- NOTE | 2016-05-12 13:05 | HISTPHYS ---
- Chief Complaint night watching TV developed bilateral lower abdominal pain below the belt which is lasted up until now. - History of Present Illness Patient is a very pleasant 80-year-old white male lives at home with his who noted 3 nights ago while he was watching TV he developed some bilateral lower quadrant pain mild in nature with a poor appetite lasting until now. He said he had a colonoscopy by Dr. Sweet 4 years that was negative for any significant pathology. He notices nothing making it worse or better other than bending or standing up. Two days ago he started vomiting bilious material and has had a dark bowel movement within the past 2 days. Tylenol and tums are of no aid. His appetite is poor. He specifically denies any previous abdominal surgery and yet the CT of his abdomen was interpreted as having evidence of a previous small bowel resection and partial obstruction. He does have evidence of diverticulosis but there is no diverticulitis present. He is not aware of having had diverticulitis either. He has been relatively healthy throughout his life except for atrial fib and sick sinus syndrome for which she required a pacemaker and takes diltiazem and aspirin chronically. According to him Dr. Borrego said that since he does not have any other risk factors other than old age he could get by with aspirin as an anticoagulant. - Medical History Cardiac History: Reports: Atrial Fibrillation, Pacemaker (Sick sinus syndrome for which he received pacemaker by Dr. Toro), Other (Pacemaker insertion for sick sinus syndrome) Respiratory History: Reports: No Significant History GI/ History: Reports: No Significant History Musculoskeletal History: Reports: No Significant History Systemic History: Reports: No Significant History Neurological History: Reports: No Significant History Psychological History: Reports: No Significant History - Surgical History Reports: No Significant History - Medictions/Allergies Allergies No Known Allergies Allergy (Verified 05/10/16 15:22) Home Medications Aspirin 325 mg PO DAILY 01/20/13 Diltiazem HCl [Cartia Xt] 240 mg PO DAILY 01/20/13 Docosahexanoic Acid/Epa [Fish Oil Softgel] 1 each PO DAILY 01/20/13 Multivitamin [One-A-Day Essential] 1 each PO DAILY 01/20/13 - Family History Reports: Cancer (Three siblings have of tobacco associated lung cancer and COPD), Other (Father@ 42 of gunshot wound mother @ 52 with a bowel obstruction) - Social History Travel Outside of [place] in the Last 3 Months?: No Lives: with Spouse Smoking Status: Never smoker Social History: Denies: Alcohol Use (None in 40 years), Substance Use Disorder - Review of Systems Constitutional: No Symptoms Reported (No Fever, chills, wt loss/gain, diaphoresis,fatigue/malaise.). negative: Chills, Fever Eyes: No Symptoms Reported (No blurry vision, visual changes, eye pain, or eye redness.) Ears: No Symptoms Reported (No ear pain or discharge) Nose: No Symptoms Reported (No nasal discharge/congestion or bleeding) Mouth: No Symptoms Reported (No oropharyngeal lesions or erythema) Throat/Neck: No Symptoms Reported (No throat pain or swelling.No oropharyngeal lesions or erythema.) Respiratory: No Symptoms Reported (No cough, wheezing, or shortness of breath.) Cardiovascular: Palpitations (Years ago) Gastrointestinal: Nausea, Vomiting, Abdominal Pain. negative: Constipation Genitourinary: No Symptoms Reported (No dysuria or hematuria.) Neurological: No Symptoms Reported (No headache, dizziness, seizures, or focal weakness.) Musculoskeletal:: No Symptoms Reported Integumentary: No Symptoms Reported (no rashes or lesions) Allergic/Immunologic: No Symptoms Reported (no rashes or lesions) Hematologic: No Symptoms Reported (No chronic anemia, bleeding, or easy bruising.), Other (Lymphatics- no lymph node swelling or pain.) Endocrine: No Symptoms Reported (No thyroid issues, polyuria, or polydipsia.) Psychiatric: No Symptoms Reported (Fully oriented, with normal and appropriate affect.) - Physical Exam Vital Signs: Initial Vitals Temperature 97.7 F 05/10/16 15:22 Pulse Rate 60 05/10/16 15:22 Respiratory Rate 18 05/10/16 15:22 Blood Pressure 147/82 05/10/16 15:22 Pulse Oxygen Saturation 95 05/10/16 15:22 Constitutional: Alert (Awake, Fully oriented. Normal and appropriate affect.Well appearing. Well nourished.), No apparent distress Oriented to: Time, Person, Place - HEENT Head: Normal (normocephalic, atraumatic.), Other (No cervical lymphadenopathy. No supraclavicular lymphadenopathy. Neck: No palpable mass, supple , trachea midline.) Eye: Normal (pupils equal, reactive to light, and round; EOMI, Sclera white) Oropharynx: Normal (Pharynx: Moist without exudate,Gums-no swelling, No oropharyngeal lesions or erythema, Mucous membranes are dry.) ENT EAC: Normal (No oropharyngeal lesions or erythema. Mucous membranes are dry. ) TMJ: Normal Nose: No Symptoms Reported (septum midline, Nares patent, without discharge or bleeding.) Respiratory: Normal - CTA (Clear to auscultation bilaterally. No wheezing, rales , rhonchi. Chest wall movements are symmetric. No use of accessory muscles to breathe.) Cardiovascular: Normal (RRR , Normal S1, S2. No murmurs, rubs, or gallops. PMI non-displaced. Carotids: no carotid bruits. No bradycardia or tachycardia. DP pulses 2+ bilaterally.) - GI Auscultation: Normal (normal active sounds) Palpation: Normal (Soft,non distended,nontender. No hepatosplenomegaly.) Tenderness: Moderate, RLQ, LLQ. negative: Rebound, Rigidity Merrill's Sign: Negative - Musculoskeletal Back: Normal (Non-Tender) Extremities: Normal (Normal tone, DP pulses 2+ bilaterally, No cyanosis or edema bilaterally, FROM bilaterally.) Spine: non-tender, normal alignment, normal inspection, limited range of motion - Integumentary Skin: Normal (Clean, dry, and intact. No rashes. No lesions.) Lymphatics: Normal (No cervical lymphadenopathy. No supraclavicular lymphadenopathy.) - Neurologic Memory Impaired: Normal Motor Function: Normal (Motor 5/5 throughout.Normal tone, Pulses 2+ No cyanosis or edema, FROM) Cranial Nerve: Normal (CN II-XII intact sensation, strength 5/5) Cerebellar: Normal. negative: Ataxia, Past-Pointing, Tremor Mood Description: Normal (Fully oriented. Normal and appropriate affect.) Thought: Coherent Perception: Normal (Normal and appropriate affect.) - Focused CV Perfusion Exam Vital Signs: Last Vital Signs Temp 97.7 F 05/10/16 15:22 Pulse 75 05/10/16 17:58 Resp 20 05/10/16 17:58 BP 156/74 05/10/16 17:58 Pulse Ox 96 05/10/16 17:58 - Lab Results 05/10/16 16:51 05/10/16 16:51 Laboratory Results - last 24 hr 05/10/16 05/10/16 05/10/16 16:42 16:51 16:51 WBC 20.3 H RBC 5.18 Hgb 15.1 Hct 45.5 MCV 88 MCH 29.1 MCHC 33.2 RDW 12.9 Plt Count 240 MPV 8.8 Neut % (Auto) Cancelled Lymph % (Auto) Cancelled Floyd % (Auto) Cancelled Eos % (Auto) Cancelled Baso % (Auto) Cancelled Absolute Neuts (auto) Cancelled Absolute Lymphs (auto) Cancelled Seg Neuts % (Manual) 77 H Lymphocytes % (Manual) 22 Monocytes % (Manual) 1 Absolute Lymphocytes 4.47 Platelet Estimate Norm RBC Morphology Norm PT INR APTT Sodium 135 L Potassium 4.2 Chloride 94 L Carbon Dioxide 27 Anion Gap 18 H BUN 37 H Creatinine 1.00 Estimated GFR (MDRD) > 60 Glucose 112 H Calculated Osmolality 270 Lactic Acid Calcium 9.5 Total Bilirubin 1.0 AST 58 ALT 33 Alkaline Phosphatase 96 Troponin I < 0.01 Total Protein 8.3 H Albumin 4.4 TSH Urine Color Germaine Urine Clarity Sl cldy Urine pH 6.0 Ur Specific [place] >/=1.035 Urine Protein 2+ H Urine Glucose (UA) Neg Urine Ketones Neg Urine Occult Blood Neg Urine Nitrite Neg Urine Bilirubin Neg Urine Urobilinogen <2.0 Ur Leukocyte Esterase Neg Urine RBC 10-20 H Urine WBC 2-5 H Calcium Oxalate Crystal 1+ Urine Mucus Large 05/10/16 05/10/16 05/10/16 16:51 17:18 20:10 WBC RBC Hgb Hct MCV MCH MCHC RDW Plt Count MPV Neut % (Auto) Lymph % (Auto) Floyd % (Auto) Eos % (Auto) Baso % (Auto) Absolute Neuts (auto) Absolute Lymphs (auto) Seg Neuts % (Manual) Lymphocytes % (Manual) Monocytes % (Manual) Absolute Lymphocytes Platelet Estimate RBC Morphology PT 10.6 INR 1.0 APTT 23.8 Sodium Potassium Chloride Carbon Dioxide Anion Gap BUN Creatinine Estimated GFR (MDRD) Glucose Calculated Osmolality Lactic Acid 1.5 Calcium Total Bilirubin AST ALT Alkaline Phosphatase Troponin I < 0.01 Total Protein Albumin TSH 1.63 Urine Color Urine Clarity Urine pH Ur Specific [place] Urine Protein Urine Glucose (UA) Urine Ketones Urine Occult Blood Urine Nitrite Urine Bilirubin Urine Urobilinogen Ur Leukocyte Esterase Urine RBC Urine WBC Calcium Oxalate Crystal Urine Mucus 05/10/16 22:55 WBC RBC Hgb Hct MCV MCH MCHC RDW Plt Count MPV Neut % (Auto) Lymph % (Auto) Floyd % (Auto) Eos % (Auto) Baso % (Auto) Absolute Neuts (auto) Absolute Lymphs (auto) Seg Neuts % (Manual) Lymphocytes % (Manual) Monocytes % (Manual) Absolute Lymphocytes Platelet Estimate RBC Morphology PT INR APTT Sodium Potassium Chloride Carbon Dioxide Anion Gap BUN Creatinine Estimated GFR (MDRD) Glucose Calculated Osmolality Lactic Acid Calcium Total Bilirubin AST ALT Alkaline Phosphatase Troponin I < 0.01 Total Protein Albumin TSH Urine Color Urine Clarity Urine pH Ur Specific [place] Urine Protein Urine Glucose (UA) Urine Ketones Urine Occult Blood Urine Nitrite Urine Bilirubin Urine Urobilinogen Ur Leukocyte Esterase Urine RBC Urine WBC Calcium Oxalate Crystal Urine Mucus - Diagnostic Findings CT abdomen pelvis IMPRESSION: Partial or incomplete proximal small bowel obstruction, with a transitional point at prior enterotomy line likely from prior small bowel resection, with long segment of smooth bowel wall thickening of approximately 13 cm immediately downstream to the transitional point. Scattered colonic diverticulosis, particularly affecting the sigmoid colon without evidence of diverticulitis. Tiny nonobstructing right renal calculus. 7 mm smoothly marginated too small to be characterized left renal mass, likely representing a cyst. Mild enlargement of the prostate gland. Atherosclerotic disease of the aorta. Small hiatal hernia. - Assessment (1) Partial small bowel obstruction K56.69 - OTHER INTESTINAL OBSTRUCTION Acute Present on Admission: Yes Possibly with adhesion versus other structure impeding his ability to adequately move products through his GI tract. Consultation is requested from Dr. Yarbrough. May also request evaluation by Dr. Sweet in the future however his blood is not microcytic nor anemic. He also denies any significant weight loss. Hemoccult stools. Since he has this markedly elevated white count cultures have been ordered and temporarily antibiotics will be given until cultures are negative. Sed rate & C reactive protein have been ordered as well. (2) Leukocytosis D72.829 - ELEVATED WHITE BLOOD CELL COUNT, UNSPECIFIED Acute Present on Admission: Yes Qualifiers: Leukocytosis type: bandemia Qualified Code(s): D72.825 - Bandemia Likely associated with his acute abdominal process. (3) Paroxysmal atrial fibrillation I48.0 - PAROXYSMAL ATRIAL FIBRILLATION Chronic Present on Admission: Yes Appears to be quiescent at present (4) Sick sinus syndrome I49.5 - SICK SINUS SYNDROME Acute Present on Admission: Yes For which he received a pacemaker from Dr. Toro (5) Dehydration E86.0 - DEHYDRATION Acute Present on Admission: Yes IV fluid will be initiated. (6) Elevated serum globulin level R77.1 - ABNORMALITY OF GLOBULIN Chronic Present on Admission: Yes Check a serum immunoelectrophoresis. - Plan CC: Dr. Ck Yarbrough Case Care Discussed with: Patient, Family, Nursing Staff Total Time: Time spent 68 minutes Critical Care: No Code: 83155 <Electronically signed by Rikki Saavedra MD> 05/11/16 0119 MTDD
--- NOTE | 2016-05-12 14:49 | GENMEDPROG ---
Chief Complaint: Better today. Minimal pain. No nausea. Some flatus but no bowel movement as yet Notes Reviewed: Yes Events from last night noted and discussed with Clinical Staff Current Medication List: Reviewed Currently: Reports: Nausea and Vomiting, Abdominal Pain. Denies: Cough, Wheezing, AGARWAL, SOB, Chest Pain DVT Prophylaxis: Yes - Physical Examination Vital Signs and I&O: Last Vital Signs Temp 98.5 F 05/12/16 09:37 Pulse 75 05/12/16 09:37 Resp 18 05/12/16 09:37 BP 134/63 05/12/16 09:37 Pulse Ox 96 05/12/16 09:37 Oxygen Pulse Oxygen Saturation 96 O2 Device Room Air Oxygen Flow Rate 6 Fraction of Inspired Oxygen ( FIO2) Intake & Output 05/09/16 05/10/16 05/11/16 05/12/16 23:59 23:59 23:59 23:59 Intake Total 1000 2349 1582 Output Total 425 1675 Balance 1000 1924 -93 Patient's weight 75.523 kg 76.702 kg General: Alert, Oriented x3, Cooperative, Well appearing, Well nourished HEENT: Normal, PERRLA, EOMI, Anicteric Sclera Neck: Non-tender, Full range of motion, Normal Trachea alignment, Normal inspection. negative: JVD Lymphatics: Normal. negative: Adenopathy Respiratory: Normal - CTA Cardiovascular: Regular rate, Regular rate and rhythm, No Gallops,Rubs/Murmurs GI: Soft, Non tender, No hepatospenomegaly, No masses. negative: Normal bowel sounds (Hypo active) Extremities/Musculoskeletal: Normal pulses. negative: Tenderness, Swelling, Edema, Clubbing, Cyanosis Skin: Warm,Dry and Intact. negative: No rashes, No breakdown, No significant lesion Neurological: Normal speech, Strength at 5/5 X4 ext, Normal tone, Cranial nerves 3-12 NL, Reflexes 2+ Psych/Mental Status: Appropriate, Normal Affect, Cooperative Lab/DI/Studies Reviewed: Laboratory Results - last 24 hr 05/12/16 05/12/16 06:50 06:50 WBC 12.7 H RBC 4.30 L Hgb 12.7 L Hct 37.8 L MCV 88 MCH 29.4 MCHC 33.4 RDW 12.9 Plt Count 232 MPV 8.2 Neut % (Auto) 65.0 Lymph % (Auto) 20.4 [place] % (Auto) 14.4 H Eos % (Auto) 0.1 Baso % (Auto) 0.1 Absolute Neuts (auto) 8.26 H Absolute Lymphs (auto) 2.54 Sodium 138 Potassium 4.5 Chloride 105 Carbon Dioxide 27 Anion Gap 11 BUN 20 Creatinine 0.90 Estimated GFR (MDRD) > 60 Glucose 82 Calculated Osmolality 268 L Calcium 8.8 - Assessment (1) Partial small bowel obstruction Acute K56.69 - OTHER INTESTINAL OBSTRUCTION Comment/Plan: Status post repair of internal hernia. Doing well today. Increase activity and ambulate. Advance diet per Dr. Yarbrough. (2) Dehydration Acute E86.0 - DEHYDRATION Comment/Plan: Continue IV fluids (3) Sick sinus syndrome Acute I49.5 - SICK SINUS SYNDROME Comment/Plan: Stable. Asymptomatic. (4) Elevated serum globulin level Chronic R77.1 - ABNORMALITY OF GLOBULIN Comment/Plan: Monitor (5) Paroxysmal atrial fibrillation Chronic I48.0 - PAROXYSMAL ATRIAL FIBRILLATION Comment/Plan: Appears to be quiescent at present Case Care Discussed with: Patient, Consultants, Family, Nursing Staff, Resource Management
[2016-05-13] MEDS: ENOXAPARIN 40 MG/0.4 ML PFS SQ SCH (01:35)
[2016-05-13] MEDS: NS/KCl 20 mEq 1,000 ML IV SCH ×4 (02:57→13:39)
[2016-05-13 07:32] LABS: AUTOMATED BASOPHIL 0.4 % (0-2); AUTOMATED EOSINOPHIL 0.6 % (0-5); AUTOMATED LYMPH 30.6 % (17-44); AUTOMATED MONOCYTE 13.7 % (3-10); AUTOMATED NEUTROPHIL 54.7 % (45-76); MPV 8.3 fL (7.4-10.4)
[2016-05-13 09:13] LABS: BLOOD UREA NITROGEN 15 MG/DL (9-20); CALCIUM 8.6 MG/DL (8.4-10.2); CALCULATED OSMOLALITY 268 MOs/Kg (270-290); CHLORIDE 106 mEq/L (98-107); GLUCOSE 72 MG/DL (70-99); SODIUM LEVEL 139 mEq/L (137-146)
--- NOTE | 2016-05-13 10:54 | GENMEDPROG ---
Chief Complaint: Doing very well. Up ambulating in the halls. Passing flatus. Denies pain. No bowel movements yet. Notes Reviewed: Yes Events from last night noted and discussed with Clinical Staff Current Medication List: Reviewed Currently: Reports: Nausea and Vomiting, Abdominal Pain. Denies: Cough, Wheezing, AGARWAL, SOB, Chest Pain DVT Prophylaxis: Yes - Physical Examination Vital Signs and I&O: Last Vital Signs Temp 97.9 F 05/13/16 05:35 Pulse 91 05/13/16 05:35 Resp 18 05/13/16 05:35 BP 120/70 05/13/16 09:04 Pulse Ox 95 05/13/16 05:35 Oxygen Pulse Oxygen Saturation 95 O2 Device Room Air Oxygen Flow Rate 6 Fraction of Inspired Oxygen ( FIO2) Intake & Output 05/10/16 05/11/16 05/12/16 05/13/16 23:59 23:59 23:59 23:59 Intake Total 1000 2349 3563 30 Output Total 425 1675 Balance 1000 1924 1888 30 Patient's weight 75.523 kg 76.702 kg 76.459 kg General: Alert, Oriented x3, Cooperative, Well appearing, Well nourished HEENT: Normal, PERRLA, EOMI, Anicteric Sclera Neck: Non-tender, Full range of motion, Normal Trachea alignment, Normal inspection. negative: JVD Lymphatics: Normal. negative: Adenopathy Respiratory: Normal - CTA Cardiovascular: Regular rate, Regular rate and rhythm, No Gallops,Rubs/Murmurs GI: Soft, Non tender, No hepatospenomegaly, No masses. negative: Normal bowel sounds (Hypo active) Extremities/Musculoskeletal: Normal pulses. negative: Tenderness, Swelling, Edema, Clubbing, Cyanosis Skin: Warm,Dry and Intact. negative: No rashes, No breakdown, No significant lesion Neurological: Normal speech, Strength at 5/5 X4 ext, Normal tone, Cranial nerves 3-12 NL, Reflexes 2+ Psych/Mental Status: Appropriate, Normal Affect, Cooperative Lab/DI/Studies Reviewed: Laboratory Results - last 24 hr 05/11/16 05/13/16 05/13/16 01:35 06:52 06:52 WBC 11.5 H RBC 4.32 L Hgb 12.6 L Hct 38.3 L MCV 89 MCH 29.2 MCHC 33.0 RDW 13.1 Plt Count 261 MPV 8.3 Neut % (Auto) 54.7 Lymph % (Auto) 30.6 [place] % (Auto) 13.7 H Eos % (Auto) 0.6 Baso % (Auto) 0.4 Absolute Neuts (auto) 6.21 Absolute Lymphs (auto) 3.45 Sodium 139 Potassium 4.3 Chloride 106 Carbon Dioxide 23 Anion Gap 14 BUN 15 Creatinine 0.90 Estimated GFR (MDRD) > 60 Glucose 72 Calculated Osmolality 268 L Calcium 8.6 IgG 755 IgA 375 IgM 84 AMRGA Interpretation - Assessment (1) Partial small bowel obstruction Acute K56.69 - OTHER INTESTINAL OBSTRUCTION Comment/Plan: Status post repair of internal hernia. Doing very well. Ambulating in the halls without difficulty. No pain. He is passing flatus but no bowel movements as yet. (2) Dehydration Acute E86.0 - DEHYDRATION Comment/Plan: Continue IV fluids (3) Sick sinus syndrome Acute I49.5 - SICK SINUS SYNDROME Comment/Plan: Stable. Asymptomatic. (4) Elevated serum globulin level Chronic R77.1 - ABNORMALITY OF GLOBULIN Comment/Plan: Monitor (5) Paroxysmal atrial fibrillation Chronic I48.0 - PAROXYSMAL ATRIAL FIBRILLATION Comment/Plan: Appears to be quiescent at present
[2016-05-13] MEDS: VITAMINS, MULTIPLE CAP PO SCH (11:41)
[2016-05-13 13:39] VITALS: BP 115/63; PULSE 76; TEMP 98.3
[2016-05-13] MEDS ORDERED: SODIUM CHLORIDE 0.9% 3 ML FLUSH FLUSH PRN (14:04)
--- NOTE | 2016-05-13 14:05 | PCM.SURGRO ---
- Objective / Physical Exam Vital Signs: Temperature: 98.3 F (05/13/16 13:38) HR: 76 (05/13/16 13:38)RR: 20 (05/13/16 13: 38) BP: 115/63 (05/13/16 13:38)Pulse Ox: 96 (05/13/16 13:38) - Assessment and Plan (1) Small bowel obstruction Acute K56.69 - OTHER INTESTINAL OBSTRUCTION (2) Paroxysmal atrial fibrillation Chronic I48.0 - PAROXYSMAL ATRIAL FIBRILLATION Present on Admission: Yes (3) Leukocytosis Acute D72.829 - ELEVATED WHITE BLOOD CELL COUNT, UNSPECIFIED Present on Admission: Yes bandemia D72.825 - Bandemia (4) Abdominal pain Acute R10.9 - UNSPECIFIED ABDOMINAL PAIN
[2016-05-13] MEDS ORDERED: SODIUM CHLORIDE 0.9% 3 ML FLUSH FLUSH SCH ×2 (15:00→18:00)
--- NOTE | 2016-05-13 17:34 | PCM.DCS92 ---
- Final/Secondary Discharge Diagnosis (1) Small bowel obstruction Acute K56.69 - OTHER INTESTINAL OBSTRUCTION (2) Paroxysmal atrial fibrillation Chronic I48.0 - PAROXYSMAL ATRIAL FIBRILLATION Present on Admission: Yes (3) Leukocytosis Acute D72.829 - ELEVATED WHITE BLOOD CELL COUNT, UNSPECIFIED Present on Admission: Yes bandemia D72.825 - Bandemia (4) Abdominal pain Acute R10.9 - UNSPECIFIED ABDOMINAL PAIN Discharge Disposition: Home Discharge Condition: Improved Physician Follow up/Referrals: Beni Dahl MD [Primary Care Provider] - As Needed Dg Yarbrough MD [Staff Physician] - Call for Appointment (Patient to call for appt.) Diet at Discharge: As Tolerated Activity: No Restrictions Call Office For: Worsening Symptoms Discontinue use of:: Alcohol, All Illegal Substances, All Types of Tobacco - DC Summary Notes Hospital Course Note:: Discharge summary on patient named CASE CERNA JR [place] [facility]16 by Rikki Saavedra MD. Date of discharge is []. Patient had internal hernia from an adhesion of the omentum and was treated laparoscopically. Patient did well and when he was tolerating his diet, ambulating, afeb, having bowel function with no pain he was felt able to be discharged. Instructions were given. - Physical Exam Vital Signs: Initial Vitals Temperature 97.7 F 05/10/16 15:22 Pulse Rate 60 05/10/16 15:22 Respiratory Rate 18 05/10/16 15:22 Blood Pressure 147/82 05/10/16 15:22 Pulse Oxygen Saturation 95 05/10/16 15:22 Constitutional: No apparent distress, Alert Respiratory: Normal - CTA Cardiovascular: Normal - GI Auscultation: Normal Palpation: Normal Tenderness: Non tender - Musculoskeletal Extremities: Normal. negative: Calf Tenderness, Clubbing, Cyanosis, Edema
== END 2016-05-13 18:30 | disposition home or self-care (01) | DRG 337 ==
LOC: ED 14:22 → MPS3 19:27
PROVIDERS: ADMIT Internal Medicine; ATTEND Hospitalist
PROC: 0DBS4ZZ (ICD-10-PCS; 2016-05-11)
PROC: 0DNS4ZZ (ICD-10-PCS; principal; 2016-05-11 12:00)
DX: K56.69 Other intestinal obstruction (principal); I49.5 Sick sinus syndrome; I48.0 Paroxysmal atrial fibrillation; E86.0 Dehydration; Z95.0 Presence of cardiac pacemaker; Z79.82 Long term (current) use of aspirin; D72.829 Elevated white blood cell count, unspecified; R77.1 Abnormality of globulin; Z79.899 Other long term (current) drug therapy
CPT/HCPCS: 36415; 71010; 74177; 80048; 80053; 81001; 83605; 84443; 84484; 85007; 85025; 85027; 85610; 85651; 85730; 86140; 86334; 87040; 87086; 93005; 96361; 96372; 96374; 99284; A9698; J0131; J1100; J1170; J1650; J1956; J2001; J2405; J2543; J2710; J3010; J3490; J7040; J7060